=== PATIENT | female | born 1990 | race Caucasian/White ===

== ENCOUNTER 2018-11-27 07:53 | Inpatient (IN) | payer BC ==
[2018-11-27] MEDS ORDERED: CITRIC ACID-SODIUM CITRATE 15 ML CUP PO ONE (10:17)
[2018-11-27] MEDS ORDERED: LACTATED RINGERS 1,000 ML IV ONE (10:17)
[2018-11-27 10:34] VITALS: BMI 36.1
[2018-11-27 10:59] LABS: Basophils % (A) 0 %; Eosinophils # (A) 0.1 k/uL (0-0.7); Eosinophils % (A) 1 %; HCT 40.1 % (34.0-46.0); HGB 13.3 gm/dL (11.4-16.0); Lymphocytes # (A) 1.2 k/uL (1.0-4.8); Lymphocytes % (A) 14 %; MCH 31.2 pg (25.0-35.0); MCV 94.6 fL (80.0-100.0); Mean Platelet Volume 7.9; Monocytes # (A) 0.4 k/uL (0-1.0); Monocytes % (A) 5 %; Neutrophils # (A) 6.8 k/uL (1.3-7.7); Neutrophils % (A) 79 %; Platelet Count 196 k/uL (150-450); RBC 4.24 m/uL (3.80-5.40); RDW 13.7 % (11.5-15.5); WBC 8.7 k/uL (3.8-10.6)
[2018-11-27] MEDS ORDERED: CLINDAMYCIN 900 MG in DEXTROSE 5% IN WATER 50 ML IVPB STA ×2 (11:02)
[2018-11-27] MEDS ORDERED: ONDANSETRON 4 MG/2 ML VIAL ONE (12:08)
[2018-11-27] MEDS ORDERED: KETOROLAC 30 MG/ML 1 ML VIAL ONE (12:08)
[2018-11-27] MEDS ORDERED: ePHEDrine SULFATE/0.9% NACL/PF 50 MG/5 ML SYRINGE IV ONE (12:08)
[2018-11-27] MEDS ORDERED: OXYTOCIN 10 UNIT/ML 1 ML VIAL ONE (12:08)
[2018-11-27] MEDS ORDERED: NALBUPHINE 10 MG/ML (1 ML AMP) ONE (12:08)
[2018-11-27] MEDS ORDERED: MORPHINE SULFATE (PF) 0.3 MG/0.3 ML SYR ONE (12:08)
--- NOTE | 2018-11-27 12:11 | P.HPOB ---
History of Present Illness H&P Date: 11/27/18 Chief Complaint: Here for for breech presentation This is a 28-year-old white female 1 para 0 EDC for 09/23/1939 weeks gestation. Patient has a known breech presentation fetus, declining option for version. She is instead electing primary low transverse section. Fetus is been active throughout the . She denies vaginal bleeding, fluid leakage, or uterine contractions. Past medical history is significant for positive factor V Leiden mutation. Past surgical history appendectomy 2011. Current medications mini dose aspirin daily, vitamin daily. ALLERGIES amoxicillin to which reports a rash. Family history significant for diabetes. Social history patient has never been a smoker, she is , she denies alcohol or drug use. history significant for blood type A-, rubella status immune. Urine culture, gonorrhea and chlamydia cultures, hepatitis B surface antigen, HIV testing, group B strep cultures all negative. One-hour Glucola 114. On exam this is a pleasant female, 5 foot 6 inches, 224 pounds, blood pressure 126/80, vital signs otherwise stable and she is afebrile. The general physical exam is within normal limits. The chest is clear to auscultation in all timmons. Bedside exam reveals a breech presentation per Akira's maneuver, confirmed with bedside ultrasound, head in the right upper quadrant. Reactive NST. Impression: 39 week intrauterine , breech presentation, choosing primary low transverse section, positive MTHFR. Plan: We will proceed with primary low transverse section. We will use Lovenox 40 mg subcu daily after surgery for total of 6 weeks. The risks benefits and alternatives of all been discussed in detail. All questions answered. Review of Systems Constitutional: Reports as per HPI Past Medical History Past Medical History: No Reported History Additional Past Medical History / Comment(s): factor V Lieden History of Any Multi-Drug Resistant Organisms: None Reported Past Surgical History: Appendectomy Past Anesthesia/Blood Transfusion Reactions: No Reported Reaction Past Psychological History: No Psychological Hx Reported Smoking Status: Never smoker Past Alcohol Use History: None Reported Past Drug Use History: None Reported - Past Family History Mother Family Medical History: No Reported History Medications and Allergies Home Medications Medication Instructions Recorded Confirmed Type Docusate [Colace] 100 mg PO DAILY 11/27/18 11/27/18 History Pedi Multivit No.25/Folic Acid 2 tab PO DAILY 11/27/18 11/27/18 History [Flintstones Multivit Chew Tab] Allergies Allergy/AdvReac Type Severity Reaction Status Date / Time amoxicillin Allergy Rash/Hives Verified 11/27/18 10:11 Exam Vital Signs Temp Pulse Resp BP 11/27/18 10:29 97.1 F L 107 H 18 126/80 Intake and Output 11/26/18 11/27/18 11/27/18 22:59 06:59 14:59 Other: Weight 101.605 kg See dictation under HPI please Results Result Diagrams: 11/27/18 10:30 Assessment and Plan Assessment: 39 week intrauterine , breech presentation, for low transverse section. Positive MTHFR, for Lovenox treatment for 6 weeks . Plan: As above. All questions answered. Time with Patient: Less than 30
[2018-11-27] MEDS ORDERED: ONDANSETRON 4 MG/2 ML VIAL IVP PRN (13:05)
[2018-11-27] MEDS ORDERED: diphenhydrAMINE 50 MG CAP PO PRN (13:05)
[2018-11-27] MEDS ORDERED: METOCLOPRAMIDE 5 MG/ML 2 ML VIAL IVP PRN (13:05)
[2018-11-27] MEDS ORDERED: HYDROcodone/APAP 5-325MG 1 EACH TAB PO PRN (13:05)
[2018-11-27] MEDS ORDERED: diphenhydrAMINE 50 MG/ML 1 ML VIAL IVP PRN ×2 (13:05)
[2018-11-27] MEDS ORDERED: ACETAMINOPHEN TAB 325 MG TAB PO PRN (13:05)
[2018-11-27] MEDS ORDERED: ZOLPIDEM 5 MG TAB PO PRN (13:05)
[2018-11-27] MEDS ORDERED: NALOXONE 0.4 MG/ML 1 ML VIAL IV PRN (13:05)
[2018-11-27] MEDS ORDERED: diphenhydrAMINE 25 MG CAP PO PRN (13:05)
--- NOTE | 2018-11-27 13:05 | P.OP ---
Date of Procedure: 11/27/18 Preoperative Diagnosis: Raghav breech presentation, 39 week intrauterine . Postoperative Diagnosis: Same, liveborn female , normal-appearing tubes and ovaries bilaterally. No uterine defects appreciated. Procedure(s) Performed: Primary low transverse section Anesthesia: spinal Surgeon: Liliya Santos Database Consultant #1: Edilson Lawrence Estimated Blood Loss (ml): 800 IV fluids (ml): 800 Urine output (ml): 200 Pathology: none sent Condition: stable Disposition: PACU Operative Findings: Liveborn female infant, raghav breech position, normal-appearing tubes and ovaries bilaterally. Description of Procedure: The patient is brought to the operating suite. Antibiotics are given. A spinal was placed per anesthesia staff without issue. She is then placed in the dorsal supine position with left lateral uterine displacement. The appropriate timeout is performed to assure proper patient and procedural identification. Diez catheter is placed in the operating room after the spinal per patient's wishes. The abdomen is prepped and draped in usual sterile fashion. The analgesia is checked and noted to be adequate. A low transverse skin incision is made in this is carried down through the subcutaneous tissue to the fascia. Fascia is isolated, scored, and extended bilaterally with curved Peralta scissors. The peritoneum is next identified and incised, there is no bowel or bladder involvement. The incision is adequate for breech presentation. A low transverse uterine incision is made in this is carried down through the myometrium into the endometrial cavity. Artificial amniorrhexis reveals clear fluid. Uterine incision is extended bluntly. The infant is delivered in the raghav breech position. Pinard maneuver is used to excise the lower extremities. The trunk is brought into the operative field. Again Pinard maneuver issues for upper extremity delivery. The head is delivered in a flexed position as the body is draped with a wet blue towel. Patient is officially delivered of a liveborn female at 1231. The umbilical cord is doubly clamped and ligated. Infant is handed to waiting nurses where scores are 9 and 9 at one and 5 minutes respectively. weighs 8 lbs. 1 oz. or 3650 g. The placenta is delivered spontaneously, it is inspected and noted to be intact with trivascular cord at 1232 hours. The uterus is externalized. It is swept clean with a a sterile sponge to avoid any retained products of conception. Bilateral tubes and ovaries are normal to inspection. The uterus is closed in a two-step fashion, first layer running locking, second layer imbricated for excellent reapproximation. No uterine defects are noted. The incision is hemostatically intact. The gutters are cleaned with a sterile sponge and then the uterus is placed back into the abdominal cavity. The peritoneum is allowed close by secondary intention. Subcutaneous tissue is irrigated, noted to be clean and dry. It is reapproxi mated with 3-0 Vicryl in a running stitch. 4-0 undyed Monocryl suture is used for final subcuticular closure on the skin. Mastisol and Steri-Strips are applied to the wound along with a dressing. Total estimated blood loss 800 mL's. Diez is noted to be draining clear urine at the end of the procedure. Total estimated blood loss 800 mL, 200 mL urine produced in the operating room. All sponge needle and enhancement counts are correct at the end of the procedure. The family is allowed to begin the bonding experience in the recovery area.
[2018-11-27] MEDS: LACTATED RINGERS 1,000 ML IV SCH (18:01)
[2018-11-27] MEDS ORDERED: Rhogam IMMUNE GLOBULIN 1,500 UNIT/1 ML IM ONE (18:35)
[2018-11-27] MEDS: SENNOSIDES-DOCUSATE SODIUM 1 EACH TAB PO SCH (20:21)
[2018-11-28] MEDS: KETOROLAC 30 MG/ML 1 ML VIAL IVP PRN ×2 (01:50→07:41)
[2018-11-28 06:54] LABS: Basophils % (A) 0 %; Eosinophils # (A) 0.1 k/uL (0-0.7); Eosinophils % (A) 1 %; HCT 35.1 % (34.0-46.0); HGB 12.2 gm/dL (11.4-16.0); Lymphocytes # (A) 1.1 k/uL (1.0-4.8); Lymphocytes % (A) 13 %; MCH 33.1 pg (25.0-35.0); MCHC 34.8 g/dL (31.0-37.0); MCV 95.2 fL (80.0-100.0); Mean Platelet Volume 8.4; Monocytes # (A) 0.3 k/uL (0-1.0); Monocytes % (A) 4 %; Neutrophils # (A) 6.7 k/uL (1.3-7.7); Neutrophils % (A) 81 %; Platelet Count 193 k/uL (150-450); RBC 3.69 m/uL (3.80-5.40); RDW 14.2 % (11.5-15.5); WBC 8.3 k/uL (3.8-10.6)
--- NOTE | 2018-11-28 08:19 | P.PN ---
Subjective Progress Note Date: 11/28/18 Principal diagnosis: Postoperative day #1 Positive flatus, pain well controlled. No complaints. Objective - Vital Signs Vital signs: Vital Signs Temp 98.6 F 11/28/18 03:57 Pulse 69 11/28/18 03:57 Resp 16 11/28/18 03:57 BP 103/61 11/28/18 03:57 Pulse Ox 100 11/28/18 03:57 Intake & Output 11/27/18 11/28/18 11/28/18 18:59 06:59 18:59 Output Total 800 1400 Balance -800 -1400 Weight 101.605 kg Output: Urine 800 1400 Other: # Voids 1 - Constitutional General appearance: Present: average body habitus, cooperative - EENT Eyes: Present: PERRLA ENT: Present: hearing grossly normal - Neck Thyroid: bilateral: normal size - Respiratory Respiratory: bilateral: CTA - Cardiovascular Rhythm: regular - Gastrointestinal General gastrointestinal: Present: normal bowel sounds - Genitourinary Genitourinary Comment(s): Incision clean and dry, intact, Steri-Strips in place. Fundus firm, midline, symmetric, 18 week size, nontender. - Neurologic Neurologic: Present: CNII-XII intact - Musculoskeletal Musculoskeletal: Present: gait normal, strength equal bilaterally - Psychiatric Psychiatric: Present: A&O x's 3, appropriate affect, intact judgment & insight - Labs CBC & Chem 7: 11/28/18 06:40 Labs: Abnormal Lab Results - Last 24 Hours (Table) 11/28/18 Range/Units 06:40 RBC 3.69 L (3.80-5.40) m/uL Assessment and Plan Assessment: Doing well postoperative day #1 Plan: Advance diet and activity. Discontinue IV. Likely discharge home tomorrow. Continue postoperative care. Time with Patient: Less than 30
[2018-11-28] MEDS: ENOXAPARIN 40 MG/0.4 ML SYRINGE SQ SCH (08:51)
[2018-11-28] MEDS: SENNOSIDES-DOCUSATE SODIUM 1 EACH TAB PO SCH ×2 (09:47→21:34)
--- NOTE | 2018-11-28 12:36 | P.PN ---
Progress Note - Text 11/28 650am 28-year-old female status post with spinal anesthetic. Patient has a VAS of 0 with no complaints of nausea vomiting, patient does have complaints of postural headache and neck pain. No complains of photophobia. Patient was ambulating and did not seem in any great distress, I encouraged her to drink caffeine and fluids and plan to treat her conservatively
[2018-11-28] MEDS: IBUPROFEN 600 MG TAB PO PRN (18:22)
[2018-11-28] MEDS: LACTATED RINGERS 1,000 ML IV SCH (21:35)
[2018-11-29] MEDS: IBUPROFEN 600 MG TAB PO PRN ×2 (02:07→09:37)
--- NOTE | 2018-11-29 07:30 | P.DS ---
Providers Date of admission: 11/27/18 09:53 Expected date of discharge: 11/29/18 Attending physician: Liliya Santos Primary care physician: [facility] Course: This is a 28-year-old white female 1 para 0 EDC for 119 who presented at 39 weeks gestation, for primary section for breech presentation. After consultation, patient declined the option of . Her history is significant for factor V Leiden deficiency. Her was otherwise unremarkable, blood type A-, rubella status immune. Please see dictated history and physical for details. Patient was admitted and underwent a low-transverse section, giving to a liveborn female with scores of 9 and 9 at one and 5 minutes respectively. was in the raghav breech presentation. She weighed 8 lbs. 1 oz. or 3650 g. There was an estimated blood loss recorded of 800 mL, please see dictated operative note for details. Patient was started on Lovenox, 40 mg subcu daily after surgery and will continue this for 6 weeks. This morning she is feeling well. She is voiding, ambulating and passing flatus without difficulty. Vital signs are stable and she is afebrile. Incision is clean and dry, intact, with Steri-Strips applied. Her breasts are not engorged, breast feeding is going well. is also doing very well. Patient's extremities are negative. She is judged to be in excellent condition for discharge home. I've given her prescription for Lovenox 40 mg to be taken subcutaneously once daily. She will continue taking her vitamin daily. I reminded her no intercourse, tampons or douching. She will use [id number] Advil, Motrin or Aleve as needed for pain. I've asked her to call me with any fevers shakes or chills, foul smelling or copious lochia, with the passage of large blood clots, with any pain not alleviated by [id number] products, or indeed with any concerns. Patient Condition at Discharge: Good Plan - Discharge Summary New Discharge Prescriptions: No Action Docusate [Colace] 100 mg PO DAILY Pedi Multivit No.25/Folic Acid [Flintstones Multivit Chew Tab] 2 tab PO DAILY Discharge Medication List Docusate [Colace] 100 mg PO DAILY 11/27/18 [History] Pedi Multivit No.25/Folic Acid [Flintstones Multivit Chew Tab] 2 tab PO DAILY 11/27/18 [History] Enoxaparin [Lovenox] 40 mg SQ DAILY 11/29/18 [History] Follow up Appointment(s)/Referral(s): Liliya Santos MD [STAFF PHYSICIAN] - 2 Weeks Discharge Disposition: HOME SELF-CARE
[2018-11-29] MEDS: ENOXAPARIN 40 MG/0.4 ML SYRINGE SQ SCH (09:09)
[2018-11-29 09:31] VITALS: BP 122/82; PULSE 72; RESP 16; TEMP 97.7
[2018-11-29] MEDS: SENNOSIDES-DOCUSATE SODIUM 1 EACH TAB PO SCH (10:11)
== END 2018-11-29 10:38 | disposition home or self-care (01) | DRG 787 ==
LOC: 4FBP 09:53
PROVIDERS: ADMIT Obstetrics & Gynecology; ATTEND Obstetrics & Gynecology
PROC: 3E0234Z Introduction of Serum, Toxoid and Vaccine into Muscle, Percutaneous Approach (ICD-10-PCS; 2018-11-27)
PROC: 10D00Z1 Extraction of Products of Conception, Low, Open Approach (ICD-10-PCS; principal; 2018-11-27 12:00)
DX: O32.1XX0 Maternal care for breech presentation, not applicable or unspecified (principal); O99.12 Other diseases of the blood and blood-forming organs and certain disorders involving the immune mechanism complicating childbirth; D68.51 Activated protein C resistance; E72.12 Methylenetetrahydrofolate reductase deficiency; O99.284 Endocrine, nutritional and metabolic diseases complicating childbirth; O26.893 Other specified pregnancy related conditions, third trimester; Z67.11 Type A blood, Rh negative; Z3A.39 39 weeks gestation of pregnancy; Z37.0 Single live birth; Z90.49 Acquired absence of other specified parts of digestive tract; Z79.82 Long term (current) use of aspirin; Z79.01 Long term (current) use of anticoagulants; Z79.899 Other long term (current) drug therapy; Z88.0 Allergy status to penicillin; Z83.3 Family history of diabetes mellitus
CPT/HCPCS: 85025; 85461; 86850; 86870; 86880; 86900; 86901

== ENCOUNTER 2019-01-21 07:33 | Emergency (ER) | payer BC ==
[2019-01-21 07:39] VITALS: TEMP 98.7
[2019-01-21] MEDS ORDERED: KETOROLAC 30 MG/ML 1 ML VIAL IVP STA (07:56)
[2019-01-21] MEDS ORDERED: ONDANSETRON 4 MG/2 ML VIAL IVP STA (07:56)
[2019-01-21] MEDS ORDERED: SODIUM CHLORIDE 0.9% 1,000 ML IV STA (07:56)
--- NOTE | 2019-01-21 08:01 | ED ---
General Adult HPI - General Chief complaint: Back Pain/Injury Stated complaint: lower back pain, abdominal pain Time Seen by Provider: 01/21/19 07:46 Source: patient, RN notes reviewed Mode of arrival: ambulatory Limitations: no limitations - History of Present Illness Initial comments: 28-year-old female with a past medical history of factor V presents to the emergency department for a chief complaint of left flank pain 2 hours. Patient states she woke up having severe sharp left flank pain. Patient does admit that this radiates around to the abdomen. Patient states that she has had urinary frequency for the past week and has an appointment with her doctor but has not yet seen them. Patient denies fevers or chills. Patient denies hematuria. Patient does admit to nausea this morning but denies any vomiting. Denies history of kidney stones.Patient has no other complaints at this time including shortness of breath, chest pain, nausea, headache, or visual changes. - Related Data Home Medications Medication Instructions Recorded Confirmed Pedi Multivit No.25/Folic Acid 2 tab PO DAILY 11/27/18 01/21/19 [Flintstones Multivit Chew Tab] Previous Rx's Medication Instructions Recorded HYDROcodone/APAP 5-325MG [[place] 1 tab PO Q6HR PRN #10 tab 01/21/19 5-325] Ibuprofen [Motrin] 600 mg PO Q6HR PRN #20 tab 01/21/19 Ondansetron [Zofran ODT] 4 mg PO Q8HR PRN #15 tab 01/21/19 Tamsulosin [Flomax] 0.4 mg PO DAILY #20 cap 01/21/19 Allergies Allergy/AdvReac Type Severity Reaction Status Date / Time amoxicillin Allergy Rash/Hives Verified 01/21/19 09:22 Review of Systems ROS Statement: Those systems with pertinent positive or pertinent negative responses have been documented in the HPI. ROS Other: All systems not noted in ROS Statement are negative. Past Medical History Past Medical History: No Reported History Additional Past Medical History / Comment(s): factor V Lieden History of Any Multi-Drug Resistant Organisms: None Reported Past Surgical History: Appendectomy, Section Past Anesthesia/Blood Transfusion Reactions: No Reported Reaction Past Psychological History: No Psychological Hx Reported Smoking Status: Never smoker Past Alcohol Use History: None Reported Past Drug Use History: None Reported - Past Family History Mother Family Medical History: No Reported History General Exam Limitations: no limitations General appearance: alert, in no apparent distress Head exam: Present: atraumatic, normocephalic, normal inspection Eye exam: Present: normal appearance, PERRL, EOMI. Absent: scleral icterus, conjunctival injection, periorbital swelling ENT exam: Present: normal exam, mucous membranes moist Neck exam: Present: normal inspection, full ROM. Absent: tenderness, meningismus, lymphadenopathy Respiratory exam: Present: normal lung sounds bilaterally. Absent: respiratory distress, wheezes, rales, rhonchi, stridor Cardiovascular Exam: Present: regular rate, normal rhythm, normal heart sounds. Absent: systolic murmur, diastolic murmur, rubs, gallop, clicks GI/Abdominal exam: Present: soft, normal bowel sounds. Absent: distended, tenderness (no tnedneress noted in the abdomen), guarding, rebound, rigid Back exam: Present: CVA tenderness (L). Absent: vertebral tenderness Neurological exam: Present: alert, oriented X3, CN II-XII intact Psychiatric exam: Present: normal affect, normal mood Course Vital Signs 01/21/19 07:36 Temperature 98.7 F Pulse Rate 62 Respiratory 18 Rate Blood Pressure 134/90 O2 Sat by Pulse 98 Oximetry Medical Decision Making - Medical Decision Making 28 year old female presents to the emergency department for a chief complaint of left flank pain. This just started this morning. Patient has had urinary frequency for the past week. On exam patient is walking on exam room bed comfortable. She does have left CVA tenderness. Patient was given Toradol which did help significantly with her pain. CBC CMP is unremarkable. Urine does show 22 red blood cells with moderate blood. X-ray KUB showed no acute intra-abdominal abnormality. However CT did show a 5.4 mm calculus in the distal left ureter causing moderate left-sided hydronephrosis. She does have stranding in the anterior abdominal wall fat, likely because she was 2 months ago. Patient is not breast-feeding. Discussed the patient that she will need to follow-up with urology because this stone may not pass on its own. Discussed [place], Motrin, Zofran, and Flomax. Discussed strategies and effects of Flomax and to not have sex as she is not on control. She does agree to this. Patient will return here if she is any worsening symptoms. She is tolerating oral intake. Pain initially resolved with Toradol however did worsen again and was given morphine with further improvement of symptoms. she will return here if she has any worsening symptoms. - Lab Data Result diagrams: 01/21/19 08:15 01/21/19 08:15 Lab Results 01/21/19 01/21/19 01/21/19 Range/Units 08:05 08:05 08:15 WBC (3.8-10.6) k/uL RBC (3.80-5.40) m/uL Hgb (11.4-16.0) gm/dL Hct (34.0-46.0) % MCV (80.0-100.0) fL MCH (25.0-35.0) pg MCHC (31.0-37.0) g/dL RDW (11.5-15.5) % Plt Count (150-450) k/uL Neutrophils % % Lymphocytes % % Monocytes % % Eosinophils % % Basophils % % Neutrophils # (1.3-7.7) k/uL Lymphocytes # (1.0-4.8) k/uL Monocytes # (0-1.0) k/uL Eosinophils # (0-0.7) k/uL Basophils # (0-0.2) k/uL Sodium 141 (137-145) mmol/L Potassium 4.0 (3.5-5.1) mmol/L Chloride 108 H (98-107) mmol/L Carbon Dioxide 24 (22-30) mmol/L Anion Gap 9 mmol/L BUN 12 (7-17) mg/dL Creatinine 0.71 (0.52-1.04) mg/dL Est GFR (CKD-EPI)AfAm >90 (>60 ml/min/1.73 sqM) Est GFR (CKD-EPI)NonAf >90 (>60 ml/min/1.73 sqM) Glucose 111 H (74-99) mg/dL Calcium 9.5 (8.4-10.2) mg/dL Total Bilirubin 0.8 (0.2-1.3) mg/dL AST 31 (14-36) U/L ALT 59 H (9-52) U/L Alkaline Phosphatase 90 (38-126) U/L Total Protein 7.3 (6.3-8.2) g/dL Albumin 4.5 (3.5-5.0) g/dL Amylase 56 (30-110) U/L Lipase 56 (23-300) U/L Urine Color Yellow Urine Appearance Clear (Clear) Urine pH 5.5 (5.0-8.0) Ur Specific [place] 1.026 (1.001-1.035) Urine Protein Trace H (Negative) Urine Glucose (UA) Negative (Negative) Urine Ketones 1+ H (Negative) Urine Blood Moderate H (Negative) Urine Nitrite Negative (Negative) Urine Bilirubin Negative (Negative) Urine Urobilinogen <2.0 (<2.0) mg/dL Ur Leukocyte Esterase Negative (Negative) Urine RBC 22 H (0-5) /hpf Urine WBC 3 (0-5) /hpf Ur Squamous Epith Cells 3 (0-4) /hpf Urine Bacteria Rare H (None) /hpf Urine Mucus Many H (None) /hpf Urine HCG, Qual Not Detected (Not Detectd) 01/21/19 Range/Units 08:15 WBC 6.5 (3.8-10.6) k/uL RBC 4.85 (3.80-5.40) m/uL Hgb 14.8 (11.4-16.0) gm/dL Hct 44.6 (34.0-46.0) % MCV 91.8 (80.0-100.0) fL MCH 30.5 (25.0-35.0) pg MCHC 33.2 (31.0-37.0) g/dL RDW 12.6 (11.5-15.5) % Plt Count 279 (150-450) k/uL Neutrophils % 68 % Lymphocytes % 24 % Monocytes % 5 % Eosinophils % 2 % Basophils % 0 % Neutrophils # 4.5 (1.3-7.7) k/uL Lymphocytes # 1.5 (1.0-4.8) k/uL Monocytes # 0.3 (0-1.0) k/uL Eosinophils # 0.1 (0-0.7) k/uL Basophils # 0.0 (0-0.2) k/uL Sodium (137-145) mmol/L Potassium (3.5-5.1) mmol/L Chloride (98-107) mmol/L Carbon Dioxide (22-30) mmol/L Anion Gap mmol/L BUN (7-17) mg/dL Creatinine (0.52-1.04) mg/dL Est GFR (CKD-EPI)AfAm (>60 ml/min/1.73 sqM) Est GFR (CKD-EPI)NonAf (>60 ml/min/1.73 sqM) Glucose (74-99) mg/dL Calcium (8.4-10.2) mg/dL Total Bilirubin (0.2-1.3) mg/dL AST (14-36) U/L ALT (9-52) U/L Alkaline Phosphatase (38-126) U/L Total Protein (6.3-8.2) g/dL Albumin (3.5-5.0) g/dL Amylase (30-110) U/L Lipase (23-300) U/L Urine Color Urine Appearance (Clear) Urine pH (5.0-8.0) Ur Specific [place] (1.001-1.035) Urine Protein (Negative) Urine Glucose (UA) (Negative) Urine Ketones (Negative) Urine Blood (Negative) Urine Nitrite (Negative) Urine Bilirubin (Negative) Urine Urobilinogen (<2.0) mg/dL Ur Leukocyte Esterase (Negative) Urine RBC (0-5) /hpf Urine WBC (0-5) /hpf Ur Squamous Epith Cells (0-4) /hpf Urine Bacteria (None) /hpf Urine Mucus (None) /hpf Urine HCG, Qual (Not Detectd) Disposition Clinical Impression: Ureterolithiasis Disposition: HOME SELF-CARE Condition: Good Instructions (If sedation given, give patient instructions): Kidney Stones (ED) Additional Instructions: Please take Motrin for pain. If pain is severe take [place]. Take Zofran as needed for nausea. Take Flomax daily. Follow-up with urology and primary care in 1-2 days. Return here to the emergency department if you have any worsening symptoms. Prescriptions: Tamsulosin [Flomax] 0.4 mg PO DAILY #20 cap Ibuprofen [Motrin] 600 mg PO Q6HR PRN #20 tab PRN Reason: Pain HYDROcodone/APAP 5-325MG [[place] 5-325] 1 tab PO Q6HR PRN #10 tab PRN Reason: Pain Ondansetron [Zofran ODT] 4 mg PO Q8HR PRN #15 tab PRN Reason: Nausea Is patient prescribed a controlled substance at d/c from ED?: Yes When asked, does pt state using other controlled substances?: No If prescribed controlled substance>3 days was MAPS reviewed?: Prescribed <3 Days If opioid is for acute pain is fill amount 7 days or less?: Yes If Rx opioid, was Start Talking consent form obtained?: Yes Referrals: Penny England MD [Primary Care Provider] - 1-2 days Donte Eli MD [STAFF PHYSICIAN] - 1-2 days Time of Disposition: 09:51
[2019-01-21 08:32] LABS: Basophils % (A) 0 %; Eosinophils # (A) 0.1 k/uL (0-0.7); Eosinophils % (A) 2 %; HCT 44.6 % (34.0-46.0); HGB 14.8 gm/dL (11.4-16.0); Lymphocytes # (A) 1.5 k/uL (1.0-4.8); Lymphocytes % (A) 24 %; MCH 30.5 pg (25.0-35.0); MCHC 33.2 g/dL (31.0-37.0); MCV 91.8 fL (80.0-100.0); Mean Platelet Volume 6.7; Monocytes # (A) 0.3 k/uL (0-1.0); Monocytes % (A) 5 %; Neutrophils # (A) 4.5 k/uL (1.3-7.7); Neutrophils % (A) 68 %; Platelet Count 279 k/uL (150-450); RBC 4.85 m/uL (3.80-5.40); RDW 12.6 % (11.5-15.5); WBC 6.5 k/uL (3.8-10.6)
[2019-01-21 08:35] LABS: ALT 59 U/L (9-52); AST 31 U/L (14-36); Albumin 4.5 g/dL (3.5-5.0); Alkaline Phosphatase 90 U/L (38-126); Amylase 56 U/L (30-110); Anion Gap 9 mmol/L; Blood Urea Nitrogen 12 mg/dL (7-17); Calcium 9.5 mg/dL (8.4-10.2); Carbon Dioxide 24 mmol/L (22-30); Chloride 108 mmol/L (98-107); Glucose 111 mg/dL (74-99); Lipase 56 U/L (23-300); Sodium 141 mmol/L (137-145); Total Bilirubin 0.8 mg/dL (0.2-1.3); Total Protein 7.3 g/dL (6.3-8.2)
--- NOTE | 2019-01-21 08:43 | XR ---
EXAMINATION TYPE: XR KUB , 2 VIEWS DATE OF EXAM ORDERED: 01/21/2019 HISTORY: abdominal pain. COMPARISON: None. FINDINGS: Lung bases are clear. Within the abdomen, the abdominal gas pattern is normal. There is no evidence of structure or free ai r. There are phleboliths within the pelvis. IMPRESSION: NO ACUTE INTRA-ABDOMINAL ABNORMALITY.
[2019-01-21 08:44] LABS: Appearance,Urine Clear (Clear); Bacteria,Urine Rare /hpf; Bilirubin,Urine Negative (Negative); Blood,Urine Moderate (Negative); Color,Urine Yellow; Glucose,Urine (UA) Negative (Negative); Ketones,Urine 1+ (Negative); Leukocyte Esterase,Urine Negative (Negative); Mucus,Urine Many /hpf; Nitrite,Urine Negative (Negative); PH, Urine 5.5 (5.0-8.0); Protein,Urine Trace (Negative); RBC,Urine 22 /hpf (0-5); Specific Gravity,Urine 1.026 (1.001-1.035); Squamous Epithelial Cell,Urine 3 /hpf (0-4); Urobilinogen,Urine <2.0 mg/dL (<2.0); WBC,Urine 3 /hpf (0-5)
--- NOTE | 2019-01-21 09:40 | CT ---
EXAMINATION TYPE: CT abdomen pelvis wo con DATE OF EXAM: 01/21/2019 COMPARISON: NONE HISTORY: Left sided back pain CT DLP: 644.3 mGycm Automated exposure control for dose reduction was used. FINDINGS: There is some minimal atelectasis at the lung bases. There is no pleural or pericardial flu id. The heart is not enlarged. Within the abdomen, the liver is minimally prominent measuring 18 cm. The spleen and gallbladder are normal. Both adrenal glands are normal. There is a 3 mm calculus in the anterior lower pole calyx of the right kidney. There is hydronephrosis on the left and there is a 5.4 mm calculus in the distal left ureter. Limited views of the pancreas are normal. There is no significant retroperitoneal, iliac or inguinal adenopathy. There is follicular change of both ovaries. The uterus is unremarkable. Both large and small bowel appear normal. There are surgical clips in the region of the appendix and the appendix is not visualized. No free fluid and no free air is seen. No bony lesion is seen. There is some stranding in the lower anterior pelvic wall fat. This may be due to inflammation or tra yannick. IMPRESSION: 1. 5.4 MM CALCULUS IN THE DISTAL LEFT URETER CAUSING MODERATE LEFT-SIDED HYDRONEPHROSIS. 2. MILD PROMINENCE OF THE LIVER. 3. NONOBSTRUCTING RIGHT-SIDED NEPHROLITHIASIS. 4. STRANDING IN THE ANTERIOR ABDOMINAL WALL FAT IN THE PELVIS MAY REFLECT INFLAMMATION OR MILD TRAUMA .
[2019-01-21] MEDS ORDERED: MORPHINE SULFATE 4 MG/ML SYRINGE IVP STA (09:57)
[2019-01-21 10:19] VITALS: BP 130/88; PULSE 70; RESP 16
== END 2019-01-21 10:19 | disposition home or self-care (01) ==
LOC: EC 07:33
DX: N13.2 Hydronephrosis with renal and ureteral calculous obstruction (principal); Z88.0 Allergy status to penicillin
CPT/HCPCS: 36415; 80053; 82150; 83690; 85025; 81001; 81025; 74018; 74176; 99284; 96374; 96375 ×2; 96361; J2270; J2405; J1885